=== PATIENT | male | born 1990 | race Caucasian/White ===

== ENCOUNTER 2018-04-17 16:39 | Emergency (ER) | payer OTHER ==
[~2018-04-17] VITALS: Ht 170.2 cm; Wt 83.4 kg
[2018-04-17] MEDS ORDERED: KEFLEX500 MG PO (17:58)
[2018-04-17 18:13] VITALS: BP 122/74
== END 2018-04-17 18:14 | disposition home or self-care (01) ==
LOC: EME 16:39
DX: L01.00 Impetigo, unspecified (principal)
CPT/HCPCS: 99281; 99283